=== PATIENT | female | born 1955 | race Caucasian/White ===

== ENCOUNTER → 2016-08-26 | Outpatient (CLI) | payer OTHER ==
--- NOTE | 2016-08-27 09:46 | MM ---
Reason for exam: screening (asymptomatic). Last mammogram was performed 1 year and 2 months ago. History: Patient is postmenopausal and is nulliparous. Took hormonal contraceptives for 27 years. Took estrogen for 6 years beginning at age 51. Took progesterone for 6 years beginning at age 51. Physical Findings: A clinical breast exam by your physician is recommended on an annual basis and results should be correlated with mammographic findings. MG Screening Mammo w CAD Bilateral CC and MLO view(s) were taken. Prior study comparison: July 04, 2015, bilateral MG screening mammo w CAD. May 23, 2014, bilateral MG screening mammo w CAD. The breast tissue is heterogeneously dense. This may lower the sensitivity of mammography. There is no discrete abnormality. No significant changes when compared with prior studies. ASSESSMENT: Negative, BI-RAD 1 RECOMMENDATION: Routine screening mammogram of both breasts in 1 year.
== END | disposition home or self-care (01) ==
LOC: RADMAMWWP 09:22
PROVIDERS: ATTEND Obstetrics & Gynecology
DX: Z12.31 Encounter for screening mammogram for malignant neoplasm of breast (principal)

== ENCOUNTER → 2017-08-10 | Outpatient (CLI) | payer BC ==
--- NOTE | 2017-08-10 15:33 | BD ---
EXAMINATION TYPE: MG DEXA axial skeleton. DATE OF EXAM: 08/10/2017 COMPARISON: 2014 CLINICAL HISTORY: osteopenia Height: 5'4 Weight: 147 FRAX RISK QUESTIONS: Alcohol (3 or more units per day): no Family History (Parent hip fracture): no Glucocorticoids (More than 3mos): no (Ex: prednisone, prednisolone, methylprednisolone, dexamethasone, and hydrocortisone). History of Fracture in Adulthood: no Secondary Osteoporosis: 1. Type 1 Diabetes: no 2. Hyperthyroidism: no 3. Menopause before 45: no 4. Malnutrition: no 5. Chronic liver disease: no Rheumatoid Arthritis: no Current Tobacco Use: no RISK FACTORS HISTORY OF: Family History of Osteoporosis: Postmenopausal woman: MEDICATIONS: Thyroid Medications: Which medication: Synthroid How Lon years Additional Medications: blood pressure Additional History: EXAM MEASUREMENTS: Bone mineral densitometry was performed using the [employer] System. Bone mineral density as measured about the Lumbar spine is: ----- L1-L4(G/cm2): 1.189 T Score Values are as follows: ----- L2: -1.8 ----- L3: 1.5 ----- L4: 0.7 ----- L1-L4: -0.2 Bone mineral density has: Decreased -2.4% since study of: 07/04/2015 Bone mineral density about the R hip (g/cm2): 0.872 Bone mineral density about the L hip (g/cm2): 0.842 T Score values are as follows: -----R Neck: -1.2 -----L Neck: -1.4 -----R Total: -1.2 -----L Total: -1.2 Bone mineral density has: Decreased -3.2 % since study of: 07/04/2015 IMPRESSION: Osteopenia (T Score between -2.5 and -1 as noted by T score values There is slightly increased risk of fracture and the patient may be considered for treatment. Re-Screen 2-5 years. NOTE: T-SCORE=SD OF THE YOUNG ADULT MEAN.
== END | disposition home or self-care (01) ==
LOC: RADBDWWP 13:26
PROVIDERS: ATTEND Obstetrics & Gynecology
DX: M85.80 Other specified disorders of bone density and structure, unspecified site (principal)
CPT/HCPCS: 77080

== ENCOUNTER → 2019-05-23 | Outpatient (CLI) | payer BC ==
--- NOTE | 2019-05-24 11:32 | MM ---
Reason for exam: screening (asymptomatic). Last mammogram was performed 2 years and 9 months ago. History: Patient is postmenopausal and is nulliparous. Took hormonal contraceptives for 27 years. Took estrogen for 6 years beginning at age 51. Took progesterone for 6 years beginning at age 51. Physical Findings: A clinical breast exam by your physician is recommended on an annual basis and results should be correlated with mammographic findings. MG Screening Mammo w CAD Bilateral CC and MLO view(s) were taken. Prior study comparison: August 26, 2016, bilateral MG screening mammo w CAD. July 04, 2015, bilateral MG screening mammo w CAD. The breast tissue is heterogeneously dense. This may lower the sensitivity of mammography. There is no discrete abnormality. ASSESSMENT: Negative, BI-RAD 1 RECOMMENDATION: Routine screening mammogram of both breasts in 1 year.
== END | disposition home or self-care (01) ==
LOC: RADMAMWWP 11:49
PROVIDERS: ATTEND Internal Medicine
DX: Z12.31 Encounter for screening mammogram for malignant neoplasm of breast (principal)
CPT/HCPCS: 77067

== ENCOUNTER → 2021-04-15 | Outpatient (CLI) | payer BC ==
--- NOTE | 2021-04-15 19:56 | BD ---
EXAMINATION TYPE: Axial Bone Density DATE OF EXAM: 04/15/2021 COMPARISON: 08/10/2017 CLINICAL HISTORY: Postmenopausal screening Height: 65 Weight: 153.7 FRAX RISK QUESTIONS: Alcohol (3 or more units per day): no Family History (Parent hip fracture): no Glucocorticoids (More than 3mos): no (Ex: prednisone, prednisolone, methylprednisolone, dexamethasone, and hydrocortisone). History of Fracture in Adulthood: no Secondary Osteoporosis: 1. Type 1 Diabetes: no 2. Hyperthyroidism: no 3. Menopause before 45: no 4. Malnutrition: yes 5. Chronic liver disease: no Rheumatoid Arthritis: no Current Tobacco Use: no RISK FACTORS HISTORY OF: Surgery to Spine/Hip(right/left)/Wrist (right/left): no Family History of Osteoporosis: yes Active: yes Diet low in dairy products/other sources of calcium: no Postmenopausal woman: yes Lost more than 2 inches in height since high school: no MEDICATIONS: metroprolol, vitamins, calcium Thyroid Medications: synthroid How Lon years Additional History: EXAM MEASUREMENTS: Bone mineral densitometry was performed using the [employer] System. Bone mineral density as measured about the Lumbar spine is: ----- L1-L4(G/cm2): 1.204 T Score Values are as follows: ----- L2: -1.7 ----- L3: 1.7 ----- L4: 1.6 ----- L1-L4: 0.2 Bone mineral density has: increased 4.1 % since study of: 08.10.2017 Bone mineral density about the R hip (g/cm2): 0.880 Bone mineral density about the L hip (g/cm2): 0.832 T Score values are as follows: -----R Neck: -1.1 -----L Neck: -1.5 -----R Total: -1.3 -----L Total: -1.3 Bone mineral density has: decreased -2.6 % since study of: 02.07.2018 IMPRESSION: Osteopenia (T Score between -2.5 and -1). There is slightly increased risk of fracture and the patient may be considered for treatment. Re-Screen 2-5 years. NOTE: T-SCORE=SD OF THE YOUNG ADULT MEAN.
--- NOTE | 2021-04-16 12:36 | MM ---
Reason for exam: screening (asymptomatic). Last mammogram was performed 1 year and 11 months ago. History: Patient is postmenopausal and is nulliparous. Took hormonal contraceptives for 27 years. Took estrogen for 6 years beginning at age 51. Took progesterone for 6 years beginning at age 51. Physical Findings: A clinical breast exam by your physician is recommended on an annual basis and results should be correlated with mammographic findings. MG 3D Screening Mammo W/Cad Bilateral CC and MLO view(s) were taken. Prior study comparison: May 23, 2019, bilateral MG screening mammo w CAD. August 26, 2016, bilateral MG screening mammo w CAD. The breast tissue is heterogeneously dense. This may lower the sensitivity of mammography. There is no discrete abnormality. ASSESSMENT: Negative, BI-RAD 1 RECOMMENDATION: Routine screening mammogram of both breasts in 1 year.
== END | disposition home or self-care (01) ==
LOC: RADMAMWWP 10:24
PROVIDERS: ATTEND Internal Medicine
DX: Z12.31 Encounter for screening mammogram for malignant neoplasm of breast (principal); Z13.820 Encounter for screening for osteoporosis; Z78.0 Asymptomatic menopausal state; M85.89 Other specified disorders of bone density and structure, multiple sites
CPT/HCPCS: 77063; 77067; 77080

== ENCOUNTER → 2024-05-17 | Outpatient (CLI) | payer MEDICARE ==
--- NOTE | 2024-05-17 12:11 | MM ---
Reason for Exam: Screening (asymptomatic). Last mammogram was performed 3 year(s) and 1 month(s) ago. Patient History: Menarche at age 17. Patient has no children. Postmenopausal. Estrogen for 6 years from age 51 until age 57. Progesterone for 6 years from age 51 until age 57. Hormonal Contraceptives for 27 years until age 50. Risk Values: Marlin 5 year model risk: 1.7%. NCI Lifetime model risk: 5.9%. Prior Study Comparison: 08/26/2016 Bilateral Screening Mammogram, [facility]. 05/23/2019 Bilateral Screening Mammogram, [facility]. 04/15/2021 Bilateral Screening Mammogram, [facility]. Tissue Density: The breasts are heterogeneously dense, which may obscure small masses. Findings: Analyzed By CAD. There is no suspicious group of microcalcifications or new suspicious mass in either breast. Stable chronic nodular tissue or nodularity outer margin of the left breast. Overall Assessment: Benign, BI-RAD 2 Management: Screening Mammogram of both breasts in 1 year. . Patient should continue monthly self-breast exams. A clinical breast exam by your physician is recommended on an annual basis. This exam should not preclude additional follow-up of suspicious palpable abnormalities. Note on Marlin scores and lifetime risk: 1. A Marlin score greater than 3% is considered moderate risk. If this is the case, consider specialist referral to assess eligibility for a risk reducing agent. 2. If overall lifetime risk for the development of breast cancer is 20% or higher, the patient may qualify for future screening with alternating mammogram and breast MRI. [facility], , 05/17/2024 12:09 PM. Electronically signed and approved by: Babak Hernandez M.D. Radiologis
--- NOTE | 2024-05-17 22:46 | BD ---
EXAMINATION TYPE: Axial Bone Density DATE OF EXAM: 05/17/2024 CLINICAL HISTORY: 68 years old Female. ICD-10 CODE: Z78.0 ASYMPT MENOPAUSAL Height: 63.25 Weight: 149.3 FRAX RISK QUESTIONS: Alcohol (3 or more units per day): no Family History (Parent hip fracture): no Glucocorticoids (More than 3mos): no (Ex: prednisone, prednisolone, methylprednisolone, dexamethasone, and hydrocortisone). History of Fracture in Adulthood: no Secondary Osteoporosis: 1. Type 1 Diabetes: no 2. Hyperthyroidism: no 3. Menopause before 45: no 4. Malnutrition: yes age 44 5. Chronic liver disease: no Rheumatoid Arthritis: no Current Tobacco Use: no RISK FACTORS HISTORY OF: Hip Fracture (Right/Left): no Spine Fracture: no History of Wrist Fracture: no Surgery to Spine/Hip(right/left)/Wrist (right/left): no MEDICATIONS: Thyroid Medications: Synthroid How Long: past 25 years Osteoporosis Medications: no EXAM MEASUREMENTS: Bone mineral densitometry was performed using the [employer] System. Bone mineral density as measured about the Lumbar spine is: ----- L1-L4(G/cm2):1.161 T Score Values are as follows: ----- L1: -2.1 ----- L2: -1.6 ----- L3: 1.1 ----- L4: 1.3 ----- L1-L4: -0.2 Z Score Values are as follows: ----- L1: -0.5 ----- L2: -0.1 ----- L3: 2.6 ----- L4: 2.9 ----- L1-L4: 1.4 Bone mineral density has: decreased -3.6 % since study of: 04/15/2021 Bone mineral density about the R hip (g/cm2): 0.823 Bone mineral density about the L hip (g/cm2): 0.881 T Score values are as follows: -----R Neck: -1.4 -----L Neck: -1.4 -----R Total: -1.5 -----L Total: -1.0 Z Score values are as follows: -----R Neck: 0.1 -----L Neck: 0.1 -----R Total: -0.2 -----L Total: 0.3 Bone mineral density has: increased 0.8 % since study of: 04/15/2021 FRAX%s: The graph provided illustrates a 9.4% chance for a major osteoporotic fx and a 1.1% chance fo r the hips probability for fx in 10 years time. IMPRESSION: Osteopenia (T Score between -2.5 and -1). There is slightly increased risk of fracture and the patient may be considered for treatment. Re-Screen 2-5 years. NOTE: T-SCORE=SD OF THE YOUNG ADULT MEAN. [facility], , 05/17/2024 10:44 PM
== END | disposition home or self-care (01) ==
LOC: RADBDWWP 11:30
PROVIDERS: ATTEND Internal Medicine
CPT/HCPCS: 77063; 77067; 77080